=== PATIENT | male | born 1995 | race Caucasian/White ===

== ENCOUNTER 2022-07-03 12:06 | Emergency (ER) | payer BC, OTHER ==
[~2022-07-03] VITALS: Ht 177.8 cm; Wt 81.6 kg
[2022-07-03 12:39] VITALS: BP_SYST 114
--- NOTE | 2022-07-03 12:44 | NUR ---
PT BIBS FOR C/O RECTAL BLEEDING STARTING LAST NIGHT. PT BROUGHT TO ROOM 7 AND ENDORSED TO MAMTA FLETCHER.
--- NOTE | 2022-07-03 12:50 | NUR ---
MD DR PEREZ AT BEDSIDE
[2022-07-03 13:22] LABS: BASOPHILS % (AUTO) 0.5 % (0.0-2.0); EOSINOPHILS # (AUTO) 0.1 K/uL (0.0-0.4); EOSINOPHILS % (AUTO) 0.7 % (0.0-4.0); HEMATOCRIT 45.2 % (36-54); HEMOGLOBIN 15.2 g/dL (14.0-18.0); LYMPHOCYTES % (AUTO) 21.6 % (20.5-51.5); MEAN CORPUSCULAR HEMOGLOBIN 29 pg (27-31); MEAN CORPUSCULAR HGB CONC 34 % (32-36); MEAN CORPUSCULAR VOLUME 85 fL (79.0-98.0); MONOCYTES # (AUTO) 1.2 K/uL (0.0-1.0); MONOCYTES % (AUTO) 12.7 % (1.7-9.3); NEUTROPHILS # (AUTO) 5.9 K/uL (1.8-7.7); NEUTROPHILS % (AUTO) 64.5 % (40.0-70.0); PLATELET COUNT (AUTO) 253 K/uL (130-430); RED CELL DISTRIBUTION WIDTH 13.6 % (9.0-15.0); WHITE BLOOD COUNT (AUTO) 9.1 K/uL (4.8-10.8)
[2022-07-03 13:42] LABS: INR 1.1 (0.80-1.20); PROTHROMBIN TIME 11.2 SECS (9.5-12.5)
[2022-07-03 13:45] LABS: CALCIUM 9.2 mg/dL (8.4-11.0); CREATININE 1.18 mg/dL (0.55-1.30)
[2022-07-03 13:48] LABS: ALBUMIN 4.6 g/dL (3.4-4.8); C-REACTIVE PROTEIN QUANT 0.8 mg/dL (0-0.5); TOTAL BILIRUBIN 1.4 mg/dL (0.0-1.0)
[2022-07-03] MEDS ORDERED: ANURH RC (14:12)
[2022-07-03 14:31] VITALS: BP_SYST 122
--- NOTE | 2022-07-03 14:34 | NUR ---
Patient given written and verbal discharge instructions and verbalizes understanding. ER MD DR PEREZ discussed with patient the results and treatment provided. Patient in stable condition. ID arm band removed. Rx of HYDROCORTISONE given. Patient educated on pain management and to follow up with PMD. Pain Scale 0/10. Opportunity for questions provided and answered. Medication side effect fact sheet provided.
== END 2022-07-03 14:50 | disposition home or self-care (01) ==
LOC: SED 12:06
DX: K64.9 Unspecified hemorrhoids (principal); K62.5 Hemorrhage of anus and rectum; Z79.899 Other long term (current) drug therapy
CPT/HCPCS: 36415; 80053; 82150; 83605; 83690; 85025; 85610-TC; 85730-TC; 86140; 99283